=== PATIENT | male | born 1935 | race Caucasian/White ===

== ENCOUNTER 2018-01-04 16:03 | Emergency (ER) | payer MEDICARE ==
[~2018-01-04] VITALS: Ht 182.9 cm; Wt 72.6 kg
--- NOTE | 2018-01-04 16:14 | ED Fall/Injury ---
General Chief Complaint: Trauma-Non Activation Stated Complaint: FALL Source: patient Exam Limitations: no limitations History of Present Illness Date Seen by Provider: Jan 04, 2018 Time Seen by Provider: 16:12 Initial Comments to ER per EMS from [facility] with reports of a fall. He sustained a cardiac arrest with anoxic brain injurya few weeks ago. He was subsequently admitted to [facility] in [place] and transported to [facility] today. He had been at that facility for about one hour when he fell at the halfway. Nurses assessed him and found his left pupil to be larger than the right and were concerned. He is on anticoagulants. It is unclear how his pupils appear since this anoxic brain injury Occurred: just prior to arrival Severity: moderate Injuries/Pain Location: head Context: unknown Loss of Consciousness: unsure Allergies and Home Medications Patient Home Medication List Home Medication List Reviewed: Yes Review of Systems Constitutional: see HPI Eyes: No Symptoms Reported Ears, Nose, Mouth, Throat: no symptoms reported Respiratory: no symptoms reported Cardiovascular: no symptoms reported Genitourinary: no symptoms reported Musculoskeletal: no symptoms reported Skin: no symptoms reported Psychiatric/Neurological: No Symptoms Reported Past Gfssefr-Wqbfwv-Pekvzw Hx Patient Social History Recent Foreign Travel: No Contact w/Someone Who Travel: No Physical Exam Vital Signs Vital Signs - First Documented 01/04/18 16:05 Temp 98.0 Pulse 87 Resp 16 B/P (MAP) 141/71 (94) Capillary Refill : General Appearance: WD/WN, no apparent distress HEENT: normal ENT inspection, other ( pupils are unequal, left pupil being larger) Neck: non-tender, full range of motion Respiratory: no respiratory distress, no accessory muscle use Gastrointestinal: normal bowel sounds, soft, other (ecchymosis of the epigastric region and lower abdomen) Extremities: normal range of motion, non-tender Neurologic/Psychiatric: alert, normal mood/affect, oriented x 3 Skin: normal color, warm/dry Mack Coma Score Best Eye Response: (4) Open Spontaneously Best Verbal Response: (4) Confused Conversation Best Motor Response: (6) Obeys Commands [place] Total: 14 Progress/Results/Core Measures Results/Orders Lab Results Laboratory Tests Test 01/04/18 17:00 Range/Units White Blood Count 9.9 4.3-11.0 10^3/uL Red Blood Count 3.96 L 4.35-5.85 10^6/uL Hemoglobin 12.1 L 13.3-17.7 G/DL Hematocrit 35 L 40-54 % Mean Corpuscular Volume 88 80-99 FL Mean Corpuscular Hemoglobin 31 25-34 PG Mean Corpuscular Hemoglobin Concent 35 32-36 G/DL Red Cell Distribution Width 15.9 H 10.0-14.5 % Platelet Count 195 130-400 10^3/uL Mean Platelet Volume 10.7 H 7.4-10.4 FL Neutrophils (%) (Auto) 90 H 42-75 % Lymphocytes (%) (Auto) 7 L 12-44 % Monocytes (%) (Auto) 2 0-12 % Eosinophils (%) (Auto) 1 0-10 % Basophils (%) (Auto) 0 0-10 % Neutrophils # (Auto) 8.9 H 1.8-7.8 X 10^3 Lymphocytes # (Auto) 0.7 L 1.0-4.0 X 10^3 Monocytes # (Auto) 0.2 0.0-1.0 X 10^3 Eosinophils # (Auto) 0.1 0.0-0.3 10^3/uL Basophils # (Auto) 0.0 0.0-0.1 10^3/uL Neutrophils % (Manual) 93 % Lymphocytes % (Manual) 2 % Monocytes % (Manual) 1 % Eosinophils % (Manual) 0 % Basophils % (Manual) 0 % Band Neutrophils 4 % Blood Morphology Comment NORMAL Urine Color RED H Urine Clarity CLOUDY H Urine pH 6.5 5-9 Urine Specific [place] 1.010 L 1.016-1.022 Urine Protein 3+ H NEGATIVE Urine Glucose (UA) NEGATIVE NEGATIVE Urine Ketones 2+ H NEGATIVE Urine Nitrite NEGATIVE NEGATIVE Urine Bilirubin NEGATIVE NEGATIVE Urine Urobilinogen NORMAL NORMAL MG/DL Urine Leukocyte Esterase 1+ H NEGATIVE Urine RBC (Auto) 5+ H NEGATIVE Urine RBC TNTC H /HPF Urine WBC 0-2 /HPF Urine Crystals NONE /LPF Urine Bacteria NONE /HPF Urine Casts NONE /LPF Urine Mucus NEGATIVE /LPF Urine Culture Indicated NO Sodium Level 141 135-145 MMOL/L Potassium Level 3.3 L 3.6-5.0 MMOL/L Chloride Level 100 98-107 MMOL/L Carbon Dioxide Level 29 21-32 MMOL/L Anion Gap 12 5-14 MMOL/L Blood Urea Nitrogen 39 H 7-18 MG/DL Creatinine 0.74 0.60-1.30 MG/DL Estimat Glomerular Filtration Rate > 60 BUN/Creatinine Ratio 53 Glucose Level 118 H 70-105 MG/DL Calcium Level 8.4 L 8.5-10.1 MG/DL Total Bilirubin 1.3 H 0.1-1.0 MG/DL Aspartate Amino Transf (AST/SGOT) 41 H 5-34 U/L Alanine Aminotransferase (ALT/SGPT) 85 H 0-55 U/L Alkaline Phosphatase 114 40-136 U/L Total Protein 5.7 L 6.4-8.2 GM/DL Albumin 3.1 L 3.2-4.5 GM/DL My Orders Orders - SHAYLEE CALERO APRN Ct Head/Cervical Spine Wo (01/04/18 16:10) Cbc With Automated Diff (01/04/18 16:11) Ua Culture If Indicated (01/04/18 16:11) Comprehensive Metabolic Panel (01/04/18 16:11) Manual Differential (01/04/18 17:00) Ct Abd/Pelvis Wo(Kidney Stone) (01/04/18 17:39) Vital Signs/I&O 01/04/18 16:05 Temp 98.0 Pulse 87 Resp 16 B/P (MAP) 141/71 (94) Diagnostic Imaging Diagonstic Imaging: CT Comments NAME: SEEMA LEW [facility] REC#: [id number] PT STATUS: REG ER : 1935 PHYSICIAN: SHAYLEE CALERO APRN ADMIT DATE: 01/04/18/ER Draft Date of Exam:01/04/18 CT ABD/PELVIS WO(KIDNEY STONE) PROCEDURE: CT urinary tract, rule out kidney stone. TECHNIQUE: Multiple contiguous axial images were obtained through the abdomen and pelvis without the use of intravenous contrast. INDICATION: Blood in urine. CORRELATION STUDY: None. FINDINGS: Small to moderate bilateral pleural effusions dependently with minimal basilar atelectasis. Emphysematous changes about the visualized lung bases. Heart size within normal limits. Small pericardial effusion. EG junction unremarkable. Unenhanced liver, spleen, pancreas and bilateral adrenal glands are unremarkable. The gallbladder is absent. There is a rather significant aortoiliac vascular calcification. No aneurysm. Intraluminal extension of the calcification could be reflective of previous chronic dissection. Gastrointestinal tract has contrast within the colon to the level of the rectum. Distal colonic fecal loading is present. Contrast within the appendiceal lumen is present. Slight haziness about the mesentery. Urinary bladder is distended. Gas is noted non-dependently. There is presence of a Barrett catheter balloon which appears to be inflated at the level of the enlarged prostate gland. There is high density contents in the dependent portion of the bladder, likely reflective of hemorrhage. Mass would be difficult to exclude. The bilateral collecting systems are mildly distended. The kidneys otherwise appear unremarkable. Osseous structures with advanced multilevel degenerative changes. Grade 1 spondylolisthesis of L4 on L5. Hypertrophic facet arthropathy. IMPRESSION: 1. Barrett catheter balloon appears malpositioned, balloon inflated within the enlarged prostate gland. Distended urinary bladder contains high density contents dependently favoring probable blood. Mass lesion would be difficult to exclude. Gas in the nondependent portion is likely owing to the presence of the catheter. Superimposed infection is not excluded. The bilateral renal collecting systems do demonstrate early obstruction. 2. Significant aortoiliac calcification. 3. Small to moderate bilateral pleural effusions. Dictated on workstation # [id number] Dict: 01/04/18 1758 Trans: 01/04/18 182 [facility] [id number] Interpreted by: UNIQUE JACOB DO Electronically signed by: Departure Communication (Admissions) I did obtain medical records from [facility] in [place]. He was noted to have unequal pupils at that time. 182-see the CT abdomen pelvis without contrast report. I deflated the balloon on the end of the catheter advanced the catheter further into the bladder. The current catheter is a 16 [place]. I then instilled under sterile technique 30 cc of sterile water and aspirated this obtaining large amount of clotted blood. I was unable to drain about 800 mL of urine from the bladder. I then removed the 16 [place] Barrett catheter and replaced it with a 22 [place] three-way Barrett catheter. We did additional hand irrigation and the color ofliquid in the catheter tubing changed from dark red to light pink. It was draining appropriately so at this time I will discharge him to home. He does have dementia and has been pulling on his Barrett catheter multiple times during the emergency room stay. Could certainly have caused the malpositioned Barrett catheter and subsequent hematuria Impression Primary Impression: Fall Additional Impressions: Hematuria Urinary retention Disposition: 03 XFER SNF Condition: Stable Departure-Patient Inst. Decision time for Depature: 17:26 Referrals: PRISCILA DEVINE MD (PCP/Family) Primary Care Physician Patient Instructions: NO INSTRUCTIONS GIVEN Add. Discharge Instructions: his pupils are unequal and they were unequal at [facility] in [place]. Return to ER for any concerns. His head CT scan is unremarkable.if his abdomen seems distended or if he complains of abdomen pain in addition to reduced urinary output In the catheter bag,the Barrett catheter will need to be irrigated again by hand. He may return to the emergency room for this if you're unable to do that under sterile technique at the halfway.follow-up with his doctor within 1 week for recheck of the catheter All discharge instructions reviewed with patient and/or family. Voiced understanding. Scripts Sulfamethoxazole/Trimethoprim (Bactrim Ds Tablet) 1 Each Tablet 1 EACH PO BID, #10 TAB Prov: SHAYLEE CALERO APRN 01/04/18 SHAYLEE CALERO APRN Jan 04, 2018 16:14
--- NOTE | 2018-01-04 16:52 | Diagnostic Imaging Report ---
PROCEDURE: CT head and CT cervical spine without contrast. TECHNIQUE: Multiple contiguous axial images were obtained through the brain and cervical spine without the use of intravenous contrast. Sagittal and coronal reformations through the cervical spine were then performed. INDICATION: Head and neck pain after fall. COMPARISON: None available. FINDINGS: CT head: No hyperdense hemorrhage or space-occupying mass. No hydrocephalus or midline shift. Global atrophy with moderate periventricular white matter ill-defined hypoattenuation, likely due to microvascular ischemic disease. No acute skull fracture. The paranasal sinuses and mastoid air cells are clear. CT cervical spine: No acute fracture or traumatic malalignment in the cervical spine. There is a hyperdense degenerative pannus posterior to the tip of the dens. Multilevel facet osteoarthritis. No high-grade spinal canal narrowing. No cervical lymphadenopathy. Visualized lung apices are clear allowing for motion artifact. IMPRESSION: 1. No acute intracranial hemorrhage or skull fracture. 2. Chronic senescent changes throughout the brain. 3. No acute fracture or traumatic malalignment in the cervical spine. 4. Large degenerative pannus posterior to the C1-C2 articulation. Dictated by: Dictated on workstation # [id number]
[2018-01-04 17:19] LABS: BASOPHILS % (AUTO) 0 % (0-10); EOSINOPHILS # (AUTO) 0.1 10^3/uL (0.0-0.3); EOSINOPHILS % (AUTO) 1 % (0-10); HEMATOCRIT 35 % (40-54); HEMOGLOBIN 12.1 G/DL (13.3-17.7); LYMPHOCYTES # (AUTO) 0.7 X 10^3 (1.0-4.0); LYMPHOCYTES % (AUTO) 7 % (12-44); MEAN CORPUSCULAR HEMOGLOBIN 31 PG (25-34); MEAN CORPUSCULAR HGB CONC 35 G/DL (32-36); MEAN CORPUSCULAR VOLUME 88 FL (80-99); MEAN PLATELET VOLUME 10.7 FL (7.4-10.4); MONOCYTES # (AUTO) 0.2 X 10^3 (0.0-1.0); MONOCYTES % (AUTO) 2 % (0-12); NEUTROPHILS # (AUTO) 8.9 X 10^3 (1.8-7.8); NEUTROPHILS % (AUTO) 90 % (42-75); PLATELET COUNT 195 10^3/uL (130-400); RED BLOOD COUNT 3.96 10^6/uL (4.35-5.85); RED CELL DISTRIBUTION WIDTH 15.9 % (10.0-14.5); WHITE BLOOD COUNT 9.9 10^3/uL (4.3-11.0)
[2018-01-04 17:26] LABS: BILIRUBIN,URINE NEGATIVE (NEGATIVE); GLUCOSE, URINE (UA) NEGATIVE (NEGATIVE); KETONES,URINE 2+ (NEGATIVE); LEUKOCYTE ESTERASE ,URINE 1+ (NEGATIVE); NITRITE,URINE NEGATIVE (NEGATIVE); PH,URINE 6.5 (5-9); PROTEIN,URINE 3+ (NEGATIVE); UROBILINOGEN,URINE NORMAL (NORMAL)
[2018-01-04 17:33] LABS: BAND NEUTROPHILS 4 %; BASOPHILS % (MANUAL) 0 %; EOSINOPHILS % (MANUAL) 0 %; LYMPHOCYTES % (MANUAL) 2 %; MONOCYTES % (MANUAL) 1 %; NEUTROPHILS % (MANUAL) 93 %; RBC MORPH NORMAL
[2018-01-04 17:37] LABS: CLARITY,URINE CLOUDY; COLOR,URINE RED; RBC,URINE TNTC /HPF; WBC,URINE 0-2 /HPF
[2018-01-04 17:45] LABS: ALANINE AMINOTRANSFERASE 85 U/L (0-55); ALBUMIN 3.1 GM/DL (3.2-4.5); ALKALINE PHOSPHATASE 114 U/L (40-136); BILIRUBIN,TOTAL 1.3 MG/DL (0.1-1.0); BUN/CREATININE RATIO 53; CALCIUM 8.4 MG/DL (8.5-10.1); CARBON DIOXIDE 29 MMOL/L (21-32); CHLORIDE 100 MMOL/L (98-107); CREATININE SERUM 0.74 MG/DL (0.60-1.30); GFR ESTIMATED > 60; GLUCOSE 118 MG/DL (70-105); POTASSIUM 3.3 MMOL/L (3.6-5.0); SODIUM 141 MMOL/L (135-145); TOTAL PROTEIN 5.7 GM/DL (6.4-8.2)
--- NOTE | 2018-01-04 18:25 | Diagnostic Imaging Report ---
PROCEDURE: CT urinary tract, rule out kidney stone. TECHNIQUE: Multiple contiguous axial images were obtained through the abdomen and pelvis without the use of intravenous contrast. INDICATION: Blood in urine. CORRELATION STUDY: None. FINDINGS: Small to moderate bilateral pleural effusions dependently with minimal basilar atelectasis. Emphysematous changes about the visualized lung bases. Heart size within normal limits. Small pericardial effusion. EG junction unremarkable. Unenhanced liver, spleen, pancreas and bilateral adrenal glands are unremarkable. The gallbladder is absent. There is a rather significant aortoiliac vascular calcification. No aneurysm. Intraluminal extension of the calcification could be reflective of previous chronic dissection. Gastrointestinal tract has contrast within the colon to the level of the rectum. Distal colonic fecal loading is present. Contrast within the appendiceal lumen is present. Slight haziness about the mesentery. Urinary bladder is distended. Gas is noted non-dependently. There is presence of a Barrett catheter balloon which appears to be inflated at the level of the enlarged prostate gland. There is high density contents in the dependent portion of the bladder, likely reflective of hemorrhage. Mass would be difficult to exclude. The bilateral collecting systems are mildly distended. The kidneys otherwise appear unremarkable. Osseous structures with advanced multilevel degenerative changes. Grade 1 spondylolisthesis of L4 on L5. Hypertrophic facet arthropathy. IMPRESSION: 1. Barrett catheter balloon appears malpositioned, balloon inflated within the enlarged prostate gland. Distended urinary bladder contains high density contents dependently favoring probable blood. Mass lesion would be difficult to exclude. Gas in the nondependent portion is likely owing to the presence of the catheter. Superimposed infection is not excluded. The bilateral renal collecting systems do demonstrate early obstruction. 2. Significant aortoiliac calcification. 3. Small to moderate bilateral pleural effusions. Dictated by: Dictated on workstation # [id number]
[2018-01-04] MEDS ORDERED: SULF1TAB35 PO (18:32)
[2018-01-04 18:47] VITALS: BP 128/53
== END 2018-01-04 18:47 ==
LOC: ER 16:07
DX: S09.90XA Unspecified injury of head, initial encounter (principal); R31.9 Hematuria, unspecified; R33.9 Retention of urine, unspecified; F03.90 Unspecified dementia, unspecified severity, without behavioral disturbance, psychotic disturbance, mood disturbance, and anxiety; R40.2142 Coma scale, eyes open, spontaneous, at arrival to emergency department; R40.2252 Coma scale, best verbal response, oriented, at arrival to emergency department; R40.2362 Coma scale, best motor response, obeys commands, at arrival to emergency department; I25.2 Old myocardial infarction; Z87.820 Personal history of traumatic brain injury; Z79.01 Long term (current) use of anticoagulants; W19.XXXA Unspecified fall, initial encounter
CPT/HCPCS: 36415; 70450; 72125; 74176; 80053; 81000; 85007; 85027